=== PATIENT | female | born 1985 | race Caucasian/White ===

== ENCOUNTER 2017-06-06 19:20 | Emergency (ER) | payer OTHER ==
[~2017-06-06] VITALS: Ht 162.6 cm; Wt 66.0 kg
[2017-06-06 19:30] VITALS: TEMP 37; Ht 162.6 cm; Wt 66.0 kg
[2017-06-06] MEDS ORDERED: DIAZEPAM INJ 5 MG/ML 2 ML CARP IM STA (19:49)
[2017-06-06] MEDS ORDERED: KETOROLAC TROMETHAMINE 60 MG/2 ML VIAL IM STA (19:49)
--- NOTE | 2017-06-06 20:12 | EMERGENCY ROOM VISIT NOTE ---
ED Visit Note First contact with patient: 19:40 CHIEF COMPLAINT: Low back pain HISTORY OF PRESENT ILLNESS: This 31-year-old female presents to the emergency department with complaint of low back pain that started earlier today. 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 She states the pain is constant, sharp, shoots down both legs with certain movements right > left, worse with movement, better with rest , 8/10. She has tried Advil, ice, heat, resting, and states nothing seems to make the pain better, and she cannot seem to get comfortable in any position. She denies any numbness or tingling, saddle paresthesias, bowel or bladder dysfunction, or weakness in the extremities. She has been able to walk without difficulty, but states this does increase her pain. She denies any previous low back injuries, back surgeries, or history of low back pain. She denies any direct trauma to the back. She denies any nausea or vomiting, abdominal pain, chest pain, shortness of breath, dizziness or syncope, urinary complaints. LMP is yesterday, she denies any chance of . REVIEW OF SYSTEMS: A complete 10 point review of systems was reviewed with the patient with pertinent positives and negatives as per history of present illness. All else were negative.. PMH: The patient is healthy; there is no significant medical or surgical history. SOCIAL HISTORY: Patient lives at home. She denies tobacco use, alcohol use, illicit drug use. ALLERGIES: No known allergies. PHYSICAL EXAM: Vital Signs: Reviewed Nurse's notes. CONSTITUTIONAL: Pleasant and cooperative. No acute distress, but in obvious discomfort throughout exam and slow to move. HEENT: Normocephalic, atraumatic. Pupils equal, round and reactive to light, EOMI. TMs normal. Pharynx normal. NECK: Supple, full active range of motion without discomfort. RESPIRATORY: Clear to auscultation bilaterally with no wheezing, crackles, rhonchi or stridor. Equal expansion bilaterally. CARDIOVASCULAR: Regular rate and rhythm with no murmurs, rubs or gallops. Normal peripheral perfusion. No edema. GASTROINTESTINAL: Soft, nontender, nondistended. No palpable masses or HSM. Bowel sounds present in all quadrants. MUSCULOSKELETAL: Full range of motion of all joints without discomfort. Normal strength of the bilateral lower extremities including dorsi-flexion and plantar flexion of the feet. Negative straight leg raise on the left, positive straight leg raise on the right. +2 patellar and Achilles reflexes bilaterally. BACK: There is midline tenderness of the lumbar spine to palpation, over L3-L4. There is corresponding paraspinous muscle tenderness on the left. There is no obvious muscle spasm. The remaining spine and paraspinous muscles are nontender to palpation. INTEGUMENTARY: No rash or other significant dermatologic conditions noted. NEUROLOGIC: Alert and oriented X 4 with normal affect. Cranial nerves II-XII grossly intact. No focal neurologic deficits noted. Normal sensation to light touch in all 4 extremities. Normal speech. Antalgic gait noted. IMAGING: LUMBAR SPINE 5 VIEWS CLINICAL HISTORY: Low back pain. FINDINGS: 5 views of the lumbar spine are obtained. No prior studies are available for comparison at the time of dictation. The skeletal structures are well mineralized. There is no radiographic evidence of fracture or malalignment. Vertebral body height and alignment are maintained. The transverse and spinous processes are intact. There is no evidence of spondylolysis. The intervertebral disc spaces are well-maintained. The visualized bony pelvis appears intact. There is a non-obstructed abdominal bowel gas pattern. Suture material is suggested in the right lower quadrant. IMPRESSION: Unremarkable radiographic evaluation of the lumbosacral spine. EMERGENCY DEPARTMENT COURSE: I examined the patient. Differential diagnosis includes lumbar sprain/strain,, muscle spasm, sciatica, disc herniation, lumbar fracture, among others. The patient was given IM Toradol and IM Valium for her symptoms. X-ray of the lumbar spine is unremarkable. Patient reports some improvement after the Toradol and Valium, but still complaining of a lot of pain , asking for something stronger. I did order a dose of [place] here in the ED for improved comfort, but explained to her that I could not provide a prescription for this, she verbalized understanding. Rx for Mobic and Valium were provided to the patient and she was educated regarding their use. Patient was instructed to follow closely with her primary care provider and to seek physical therapy for her low back pain. She was also given strict return precautions should her symptoms worsen, she verbalized understanding. The patient was discharged home in stable condition and ambulatory. Current/Historical Medications Scheduled Diazepam (Valium), 5 MG PO QID Meloxicam (Mobic), 1 TAB PO DAILY Vital Signs Date Time Temp Pulse Resp B/P (MAP) Pulse Ox O2 Delivery O2 Flow Rate FiO2 06/06/17 21:30 87 18 124/70 98 Room Air 06/06/17 19:30 37.0 100 16 126/83 98 Room Air Medications Administered Medications (Trade) Dose Ordered Sig/Radha Route Start Time Stop Time Status Last Admin Dose Admin Ketorolac Tromethamine (Toradol Inj) 60 mg NOW STAT IM 06/06/17 19:49 06/06/17 19:51 DC 06/06/17 20:10 60 MG Diazepam (Valium Inj) 10 mg NOW STAT IM 06/06/17 19:49 06/06/17 19:51 DC 06/06/17 20:10 10 MG Acetaminophen/ Hydrocodone Bitart ([place] 5/325 Tab) 1 tab NOW STAT PO 06/06/17 21:42 06/06/17 21:43 DC 06/06/17 21:49 1 TAB Departure Information Impression Primary Impression: Strain of lumbar region Dispostion Home / Self-Care Condition GOOD Prescriptions Diazepam (Valium) 5 Mg Tab 5 MG PO QID for 3 Days, #12 TAB Prov: Merly Stafford, ERMA 06/06/17 Meloxicam (MOBIC) 15 Mg Tab 1 TAB PO DAILY for 14 Days, #14 TAB 0 Refills Prov: Merly Stafford, C[employer]EN 06/06/17 Referrals No Doctor, Assigned (PCP) Patient Instructions ED Back Care Tips, ED Exercises Lumbar Muscles, ED Low Back Pain Injury, [facility] Additional Instructions Take it easy for the next few days, no strenuous activity, heavy lifting, or bending/twisting motions, to allow your back to rest. Alternate heat and ice for comfort. After heat, you may do gentle stretching and massage to the low back. Mobic as prescribed once a day for the next two weeks to treat your pain and inflammation in your back. Do not take other NSAIDs while you are taking this medication. You may also take extra strength Tylenol 1000 mg every 8 hours as needed for pain, not more than 3000 mg in 24 hours. Valium muscle relaxer as prescribed, every 6 hours as needed for muscle tightness and spasms. This may make you drowsy. Do not drive or drink alcohol while taking. Follow up with your PCP in the next few days for further management. You may benefit from physical therapy. Please return to the ER if any problems with bowel or bladder function, numbness in your groin, high fevers, severe abdominal pain or worsening back pain, or if loss of feeling/movement of legs. Work Instructions Return To Work: 3 days Problem Qualifiers Primary Impression: Strain of lumbar region Encounter type: initial encounter Qualified Codes: S39.012A - Strain of muscle, fascia and tendon of lower back, initial encounter
--- NOTE | 2017-06-06 20:58 | DIAGNOSTIC IMAGING REPORT ---
LUMBAR SPINE 5 VIEWS CLINICAL HISTORY: Low back pain. FINDINGS: 5 views of the lumbar spine are obtained. No prior studies are available for comparison at the time of dictation. The skeletal structures are well mineralized. There is no radiographic evidence of fracture or malalignment. Vertebral body height and alignment are maintained. The transverse and spinous processes are intact. There is no evidence of spondylolysis. The intervertebral disc spaces are well-maintained. The visualized bony pelvis appears intact. There is a nonobstructed abdominal bowel gas pattern. Suture material is suggested in the right lower quadrant. IMPRESSION: Unremarkable radiographic evaluation of the lumbosacral spine. Electronically signed by: Mahin Colby M.D. 06/06/2017 8:57 PM Dictated Date/Time: 06/06/2017 8:57 PM
[2017-06-06 21:30] VITALS: BP 124/70; PULSE 87; O2SAT 98
[2017-06-06] MEDS ORDERED: DIAZ-165 PO (21:35)
[2017-06-06] MEDS ORDERED: MELO15TA4 PO (21:35)
[2017-06-06] MEDS ORDERED: HYDROCODONE/ACETAMOPHEN 5/325MG TAB PO STA (21:42)
== END 2017-06-06 21:49 | disposition home or self-care (01) ==
LOC: C.EDB 19:21 → C.EDD 21:49
DX: S39.012A Strain of muscle, fascia and tendon of lower back, initial encounter (principal); X58.XXXA Exposure to other specified factors, initial encounter